=== PATIENT | male | born 1965 | race Hispanic/Latino ===

== ENCOUNTER → 2019-04-04 | Outpatient (CLI) | payer SELFPAY ==
[~2019-04-04] MED LIST: IOHEXOL 350 MG/ML 100ML INFUS..BTL IV ONE; METOPROLOL TARTRATE 1 MG/ML 5ML VIAL IV ONE
--- NOTE | 2019-04-04 11:51 | NUR ---
LATE ENTRY: METOPROLOL 5MG ADMINISTERED AT 0922, PULSE RATE 77. Addendum: 04/04/19 at 1504 by JOSH RINALDI RN RN METOPROLOL 5MG ADMINISTERED @ 0922, PER PROTOCOL, FOR DESIRED GOAL HR BELOW 70. PT TOLERATED WELL, DESIRED HR MET AND PROCEDURE WAS COMPLETED WITHOUT INCIDENT
== END | disposition home or self-care (01) ==
LOC: RAH 08:26
PROVIDERS: ATTEND Internal Medicine Cardiovascular Disease
DX: R94.39 Abnormal result of other cardiovascular function study (principal); K76.0 Fatty (change of) liver, not elsewhere classified; F41.9 Anxiety disorder, unspecified; N13.30 Unspecified hydronephrosis; M47.895 Other spondylosis, thoracolumbar region; I25.10 Atherosclerotic heart disease of native coronary artery without angina pectoris; K44.9 Diaphragmatic hernia without obstruction or gangrene; Z79.899 Other long term (current) drug therapy
CPT/HCPCS: 75574; 96374; J3490; Q9967